=== PATIENT | female | born 2000 | race Caucasian/White ===

== ENCOUNTER 2021-08-07 15:03 | Emergency (ER) | payer OTHER ==
[2021-08-07 20:09] LABS: BASOPHIL 0.4 % (0-2); EOSINOPHIL 0 % (0-5); HCT 38.8 % (37.0-47.0); HGB 13.2 g/dl (12.5-16.0); LYMPHOCYTE 10.4 % (15-48); MCH 29.1 pg (25.0-31.0); MCV 85.7 fL (78.0-100.0); MONOCYTE 15.9 % (0-12); MPV 9.9 fL (6.0-9.5); NEUTROPHIL 73.1 % (41-80); NRBC 0; PLT 257 K/uL (150-400); RBC 4.53 M/uL (4.20-5.40); RDW 11.9 % (11.5-14.0); WBC 4.5 K/uL (4.0-10.5)
[2021-08-07 20:13] LABS: BILIRUBIN NEGATIVE (NEGATIVE); BLOOD NEGATIVE Ery/uL (NEGATIVE); CLARITY CLEAR (CLEAR); COLOR YELLOW (YELLOW); GLUCOSE (U) NORMAL (NORMAL); LEUKOCYTES NEGATIVE Leu/uL (NEGATIVE); NITRITE NEGATIVE (NEGATIVE); PROTEIN NEGATIVE (NEGATIVE); UROBILINOGEN 0.2 mg/dL (0.2-1.0)
[2021-08-07 20:27] LABS: BUN/CREAT RATIO (CALC) 14.3 RATIO; CREATININE 0.56 mg/dL (0.51-0.95); POTASSIUM 3.9 mmol/L (3.5-5.1)
[2021-08-07 20:47] LABS: INFLUENZA A NAA NEGATIVE (NEGATIVE)
[2021-08-07 20:51] LABS: CORONAVIRUS 2019 SARS-COV-2 POSITIVE (NEGATIVE)
[2021-08-07] MEDS ORDERED: FIORICET1 EACH PO (21:05)
== END 2021-08-07 20:50 | disposition home or self-care (01) ==
LOC: FER 15:03
PROVIDERS: Emergency Medicine Emergency Medical Services
DX: G43.109 Migraine with aura, not intractable, without status migrainosus (principal); U07.1 COVID-19
CPT/HCPCS: 36415; 70450; 80048; 81003; 85025; 87880; 93005; U0002